=== PATIENT | female | born 1975 | race Caucasian/White ===

== ENCOUNTER 2022-01-12 15:02 | Emergency (ER) | payer OTHER, MEDICAID ==
[~2022-01-12] VITALS: Ht 160 cm; Wt 88.9 kg
[2022-01-12] MEDS ORDERED: NITROSTAT0.4 M1 DISSOLVE (15:16)
[2022-01-12] MEDS ORDERED: CELEXA 20 MG TA20 MG PO (15:17)
[2022-01-12] MEDS ORDERED: BUSPIRONE HCL10 MG PO (15:18)
[2022-01-12] MEDS ORDERED: MINIPRESS5 MG PO (15:18)
[2022-01-12] MEDS ORDERED: TRULICITY0.75 MG/0. SUBQ (15:18)
[2022-01-12] MEDS ORDERED: TRULICITY1.5 MG/0.5 SUBQ (15:19)
[2022-01-12] MEDS ORDERED: FENOFIBRATE150 MG PO (15:19)
[2022-01-12] MEDS ORDERED: VITAMIN D250 MCG PO (15:19)
[2022-01-12] MEDS ORDERED: LEVOTHYROXINE75 MC1 PO (15:20)
[2022-01-12] MEDS ORDERED: EMGALITY120 MG/1 M SUBQ (15:20)
[2022-01-12] MEDS ORDERED: CALCIUM D-GLUC500 MG PO (15:20)
[2022-01-12] MEDS ORDERED: NEURONTIN100 MG PO (15:20)
[2022-01-12] MEDS ORDERED: FISH OIL 1,001000 M2 PO (15:21)
[2022-01-12] MEDS ORDERED: MAGNESIUM250 M1 PO (15:21)
[2022-01-12] MEDS ORDERED: VITAMIN B-121000 MC2 SUBLING (15:21)
[2022-01-12] MEDS ORDERED: MULTIPLE VITAM1 EAC2 PO (15:21)
[2022-01-12 15:40] LABS: ABSOLUTE EOSINOPHILS 0.1 thou/uL (0.0-0.7); ABSOLUTE LYMPHOCYTES 2.1 thou/uL (0.8-5.3); ABSOLUTE MONOCYTES 0.5 thou/uL (0.0-1.2); ABSOLUTE NEUTROPHILS 4.4 thou/uL (1.6-8.1); BASOPHILS 0.5 %; EOSINOPHILS 0.8 %; HEMATOCRIT 38.9 % (37.0-47.0); HEMOGLOBIN 12.9 gm/dL (12.0-15.0); LYMPHOCYTES 29.4 %; MCHC 33.2 g/dL (28.0-37.0); MCV 84.5 fL (80.0-100.0); MONOCYTES 6.6 %; MPV 8.7 fl. (7.2-11.1); NUCLEATED RBCS 0 /100WBC; PLATELET COUNT* 255 thou/uL (150-400); POLYS 62.7 %; RBC 4.61 mil/uL (4.20-5.00); RDW-CV 13.9 % (10.5-14.5)
[2022-01-12 15:47] LABS: CALCIUM 9.1 mg/dL (8.5-10.1); CREATININE 0.9 mg/dL (0.6-1.3); POTASSIUM 3.7 mmol/L (3.5-5.1)
[2022-01-12 15:58] LABS: MAGNESIUM 2.1 mg/dL (1.8-2.4); TOTAL BILIRUBIN 0.4 mg/dL (<0.1-1.0); TOTAL PROTEIN 7.1 g/dL (6.4-8.2)
--- NOTE | 2022-01-12 15:59 | EKG ---
[place] [address] ELECTROCARDIOGRAM REPORT Name: MEHRAN OSHEA Adan Room: [facility]#: [id number] Admission: 01/12/22 Attend Phys: Discharge: Date of : 71 Date of Service: 01/12/22 1510 Report #: [id number] THIS REPORT FOR: //name// [facility] ED Test Date: 2022-01-12 Test Time: 15:10:56 Pat Name: MEHRAN OSHEA Department: Room: Gender: Outbound Sales Specialist: : 1975 Requested By: Andrei Rios Order Number: [id number] MD: Igor Torrez Measurements Intervals [place] Rate: 88 P: 28 [place]: 158 QRS: 15 QRSD: 87 T: 28 QT: 363 QTc: 440 Interpretive Statements Sinus rhythm No previous ECG available for comparison Electronically Signed On 01-12-2022 15:58:43 STRUCTURAL TECHNICIAN by Igor Torrez [email or web address] <ELECTRONICALLY SIGNED> By: Igor Torrez MD, [facility] 01/12/22 1558 1510 1510 Igor Torrez MD, FACC /EPI
[2022-01-12] MEDS ORDERED: HYDROCODON-ACE1 EAC7 PO (18:31)
[2022-01-12 19:04] VITALS: BP 107/59
== END 2022-01-12 19:10 | disposition home or self-care (01) ==
LOC: M.ERS 15:02
PROVIDERS: Emergency Medicine Emergency Medical Services
DX: R07.89 Other chest pain (principal); E11.9 Type 2 diabetes mellitus without complications; E78.00 Pure hypercholesterolemia, unspecified; G43.909 Migraine, unspecified, not intractable, without status migrainosus; Z90.710 Acquired absence of both cervix and uterus; Z79.891 Long term (current) use of opiate analgesic; Z79.899 Other long term (current) drug therapy; Z91.040 Latex allergy status; Z88.5 Allergy status to narcotic agent; Z91.09 Other allergy status, other than to drugs and biological substances